=== PATIENT | female | born 1995 | race Hispanic/Latino ===

== ENCOUNTER 2021-11-29 18:46 | Emergency (ER) | payer OTHER ==
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
[2021-11-29 20:24] LABS: Absolute Lymphocytes (CBC) 1.9 K/uL (0.7-4.9); Hematocrit 39.2 % (36.0-45.0); Lymphocytes % 14.1 % (15.3-44.8); MCV 83.5 fL (80-100); MPV 9.4 fL (7.6-11.3)
[2021-11-29] MEDS ORDERED: DIAZEPAM 10 MG/2 ML INJ SYRINGE ONE (20:44)
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
[2021-11-29 20:56] LABS: Albumin 3.7 g/dL (3.4-5.0); Bilirubin Total 0.7 mg/dL (0.2-1.0); Protein, Total 7.2 g/dL (6.4-8.2)
[2021-11-29 21:01] LABS: Potassium 3.7 mmol/L (3.5-5.1)
[2021-11-29 23:34] VITALS: TEMP 97.1
[2021-11-29 23:37] VITALS: O2SAT 100
[2021-11-29 23:40] VITALS: BP 127/80
== END 2021-11-29 21:47 | disposition home or self-care (01) ==
LOC: ER 18:46
DX: S09.90XA Unspecified injury of head, initial encounter (principal); S63.591A Other specified sprain of right wrist, initial encounter; S40.022A Contusion of left upper arm, initial encounter; V43.62XA Car passenger injured in collision with other type car in traffic accident, initial encounter
CPT/HCPCS: 96361; 85025; 36415; 82550; 80053; 70450; 71250; 72125; 73090; 73060; 90471; 96374; 99284; J3360